=== PATIENT | female | born 1950 | race Caucasian/White ===

== ENCOUNTER 2023-02-12 18:00 | Emergency (ER) | payer MEDICARE ==
[~2023-02-12] VITALS: Ht 162.6 cm; Wt 80.0 kg
[2023-02-12 18:48] LABS: BASOPHILS % 0.6 % (0.0-2.0); EOSINOPHILS % 3.4 % (0.0-5.0); HEMATOCRIT. 37.3 % (36.0-48.0); HEMOGLOBIN. 12.1 g/dL (12.0-16.0); LYMPHOCYTES % 32.7 % (20.0-50.0); MEAN CORPUSCULAR VOLUME 86.6 fL (81.0-99.0); MEAN PLATELET VOLUME 7.4 fl (7.4-10.4); MONOCYTES % 5.9 % (2.0-8.0); NEUTROPHILS % 57.4 % (40.0-76.0); PLATELET 287 x1000/uL (130-400); RED BLOOD CELL COUNT 4.31 mill/uL (4.2-5.4); RED CELL DISTRIBUTION WIDTH 14.3 % (11.6-14.6)
[2023-02-12 18:58] LABS: PROTHROMBIN TIME 10.3 sec (9.6-11.0)
[2023-02-12 19:57] LABS: CHLORIDE 109 mEq/L (98-107)
[2023-02-13] MEDS ORDERED: KETOROLAC 15MG/ML VIAL IV NR (02:00)
[2023-02-13] MEDS ORDERED: IBUP-2028 MT (04:41)
[2023-02-13 04:50] VITALS: BP 131/61
== END 2023-02-13 04:55 | disposition home or self-care (01) ==
LOC: ER 18:00
DX: R07.89 Other chest pain (principal); I10 Essential (primary) hypertension; Z90.710 Acquired absence of both cervix and uterus; Z90.49 Acquired absence of other specified parts of digestive tract
CPT/HCPCS: 36415; 71045; 80053; 83690; 84484; 85025; 85610; 93005; 96374; 99285; J1885